=== PATIENT | male | born 1970 | race Caucasian/White ===

== ENCOUNTER 2022-10-09 12:54 | Day surgery (SDC) | payer OTHER, SELFPAY ==
--- NOTE | 2022-10-09 | PATH_ITS ---
[facility] Accession Number: [id number] No. of containers..02 Tissue . 01 Material submitted: . PART A: colon - ASCENDING COLON POLYP PART B: colon - TRANSVERSE COLON POLYP . 01 Diagnosis: A. Ascending Colon Polyp: Tubular adenoma. . B. Transverse Colon Polyp: Tubular adenoma. MRV 10/16/2022 1323 Local . 01 Electronically signed: . Sunny Melgar MD, PhD, Pathologist NPI- [id number] . 01 Gross description: . Part A: ASCENDING COLON POLYP: Received in formalin is 1 fragment(s) of edwards, soft tissue measuring 0.1 x 0.1 x 0.1 cm submitted entirely in 1 cassette(s) Part B: TRANSVERSE COLON POLYP: Received in formalin are 2 fragment(s) of edwards, soft tissue measuring 0.2 x 0.1 x 0.1 cm to 0.6 x 0.6 x 0.6 cm submitted entirely in 1 cassette(s) /NELDA 10/12/2022 0109 Local . 01 Pathologist provided ICD-10: D12.2, D12.3 . 01 CPT . 612320, 484411 Specimen Comment: A courtesy copy of this report has been sent to [phone] Performed at: 01 [facility] [address] [place] [address] [address], [place], [place] [id number] MD Edwin Harper MD Phone: [phone]
[2022-10-09 13:32] VITALS: BMI 26.8
[2022-10-09 13:38] VITALS: BP 143/97; PULSE 80; RESP 12; TEMP 36.6; O2SAT 100
[2022-10-09] MEDS: LACTATED RINGERS 1,000 ML 42 ML IV (13:50)
--- NOTE | 2022-10-09 14:29 | P.HP_ITS ---
History of Present Illness History of Present Illness Date Patient Seen: 10/09/22 Time Patient Seen: 14:29 Chief complaint: Colonoscopy Narrative: Here for colon cancer screening. [facility] Social History Smoking Status: Never smoker Meds Home Medications and Allergies Home Medications Medication Instructions Recorded Confirmed Type duloxetine 60 mg capsule,delayed 60 mg PO DAILY 10/09/22 10/09/22 History release escitalopram oxalate 10 mg tablet 10 mg PO DAILY 10/09/22 10/09/22 History (Lexapro) lisinopril 10 mg tablet 10 mg PO DAILY 10/09/22 10/09/22 History Allergies Allergy/AdvReac Type Severity Reaction Status Date / Time No Known Drug Allergies Allergy Verified 10/09/22 13:28 Review of Systems Review of Systems ROS: Yes All systems reviewed with the patient and are negative except as otherwise documented Exam Vital Signs (past 8 hours): - 10/09/22 13:38 Temperature 97.9 F Pulse Rate 80 Respiratory Rate 12 Blood Pressure 143/97 H Pulse Oximetry 100 Oxygen Delivery Method Room Air Oxygen Delivery Method Room Air Const General: cooperative HENMT Head: normal to inspection Eyes General: appearance normal, both eyes and all related structures Neck Neck: normal visual inspection Chest Chest: normal inspection of the chest Resp Effort & Inspection: normal respiratory effort Cardio Rate: regular rate GI Inspection: normal to inspection Skin General: no rashes or lesions noted Neuro General: patient alert and patient awake Extrem General: normal to inspection and no pedal edema Psych Appearance: grossly normal Assessment & Plan Assessment & Plan narrative: 52-year-old male here for colon cancer screening. No family history of colon cancer. Colonoscopy is pursued today.
--- NOTE | 2022-10-09 14:30 | PM.PREOP ---
Pre-operative Note Interval Note History & Physical reviewed/Exam performed by Physician: Yes Changes to H&P: No ASA Class (for procedural sedation): II
--- NOTE | 2022-10-09 15:27 | PM.OP.COLON ---
Operative Date/Time/Diagnoses Date of procedure: 10/09/22 Time of procedure: 15:27 Pre-op diagnosis: Colon cancer screening Post-op diagnosis: same Procedure & Clinicians Study performed: Colonoscopy with cold forceps polypectomy and hot snare polypectomy Same procedure as scheduled: Yes Indications: Colon cancer screening Surgeon: Terrance Whittaker Procedure Notes SCOAP/Timeout: Done Procedure in detail: After the risks and benefits were explained, written and verbal informed consent was obtained. The patient was brought into the procedure room and placed into the left lateral decubitus position. Please see anesthesia notes for sedation details. Digital rectal examination was accomplished. The scope was introduced into the patient and advanced under direct visualization to the cecum as identified by the appendiceal orifice and ileocecal valve. The scope was slowly withdrawn to carefully examine the mucosa for any defects or lesions. Comprehensive imaging was accomplished throughout the rectum including the dentate line. The colon was decompressed, the scope was then removed from the patient who tolerated the procedure well. Adult colonoscope Bowel prep fair Scope withdrawal time: 15 minutes Sedation minutes: 22 Complications: none Impression: There was an approximately 4 mm polyp in the ascending colon removed with cold forceps. In the transverse colon there was an approximately 6 mm polyp removed with hot snare. Prep conditions were fair at best. This required copious irrigation and suction. In some areas small polyps could have been overlooked. Endoscopic diagnosis 1. Colon polyps x2 2. Fair bowel prep Post-procedure Plan for aftercare: 1. Await histopathology. 2. Repeat colonoscopy is suggested for 3 years. Disposition: PACU
[2022-10-09 15:28] VITALS: BP 115/61; PULSE 71; RESP 18; TEMP 36.4; O2SAT 100
[2022-10-09 15:35] VITALS: BP 115/74; PULSE 76; RESP 14; O2SAT 98
[2022-10-09 15:39] VITALS: BP 123/72; PULSE 67; RESP 22; O2SAT 100
[2022-10-09 15:43] VITALS: BP 128/82; PULSE 59; RESP 12; O2SAT 100
== END 2022-10-09 16:03 | disposition home or self-care (01) ==
PROVIDERS: Referring Provider Internal Medicine Gastroenterology; Visit Provider Internal Medicine Gastroenterology
PROC: 0DJD8ZZ Inspection of Lower Intestinal Tract, Via Natural or Artificial Opening Endoscopic (ICD-10-PCS; CPT 45378; principal; 2022-10-09 14:30)
DX: Z12.11 Encounter for screening for malignant neoplasm of colon (principal); D12.2 Benign neoplasm of ascending colon; D12.3 Benign neoplasm of transverse colon
CPT/HCPCS: 45385; 45380; J2704